=== PATIENT | female | born 1995 | race Caucasian/White ===

== ENCOUNTER 2021-03-26 21:58 | Emergency (ER) | payer SELFPAY ==
[~2021-03-26] VITALS: Ht 177.8 cm; Wt 147.5 kg
--- NOTE | 2021-03-26 22:44 | PHYS DOC ---
General Adult HPI: HPI: ".. I ve got SCABIES again... I did he Nix treatment.. but did not redo it in two weeks.. I ve got it back the aftab .. and his kids had it.. maybe it is in my mattress...:' Patient is a 25 year old female who presents with above hx and complaints scabies . Patient previous diagnosed with this however only completed 1 treatment. Patient had exposure to ex-boyfriend and his children who all had scabies. Patient recently moved to [facility] from [facility]. No history immunosuppression. No history of civic ill contacts other than her boyfriend and his children. No history immunosuppression. Has not gotten flu vaccination or Covid vaccination. Patient previously worked at [employer]. Has had previous infections of MRSA. Patient does have a past history of chlamydia infection. Has had 10 lifetime sex partners. Review of Systems: Review of Systems: Constitutional: Denies fever or chills Eyes: Denies change in visual acuity HENT: Denies nasal congestion or sore throat Respiratory: Denies cough or shortness of breath Cardiovascular: Denies chest pain or edema GI: Denies abdominal pain, nausea, vomiting, bloody stools or diarrhea : Denies dysuria Musculoskeletal: Denies back pain or joint pain Integument: Complains of rash Neurologic: Denies headache, focal weakness or sensory changes Endocrine: Denies polyuria or polydipsia Lymphatic: Denies swollen glands Psychiatric: Denies depression or anxiety Family History: Family History: Noncontributory to presentation Current Medications: Current Meds: See nursing for home meds Allergies: Allergies: No known drug allergies Physical Exam: PE: Constitutional: Moderate acute distress, non-toxic appearance. [] HENT: Normocephalic, atraumatic, bilateral external ears normal, oropharynx moist, no oral exudates, nose normal. [] Eyes: PERRLA, EOMI, conjunctiva normal, no discharge. [] Neck: Normal range of motion, no tenderness, supple, no stridor. [] Cardiovascular:Heart rate regular rhythm, no murmur [] Lungs & Thorax: Bilateral breath sounds clear to auscultation [] Abdomen: Bowel sounds normal, soft, no tenderness, no masses, no pulsatile masses. [Obese.] Skin: Warm, dry, no erythema, extensive areas of d excoriation and lesions appear to be scabies-like. Back: No tenderness, no CVA tenderness. [] Extremities: No tenderness, no cyanosis, no clubbing, ROM intact, no edema. [] Neurologic: Alert and oriented X 3, normal motor function, normal sensory function, no focal deficits noted. [] Psychologic: Affect anxious,, judgement normal, mood normal. [] EKG: EKG: [] Radiology/Procedures: Radiology/Procedures: [] Heart Score: C/O Chest Pain: N/A Risk Factors: Risk Factors: DM, Current or recent (<one month) smoker, HTN, HLP, family history of CAD, obesity. Risk Scores: Score 0 - 3: 2.5% MACE over next 6 weeks - Discharge Home Score 4 - 6: 20.3% MACE over next 6 weeks - Admit for Clinical Observation Score 7 - 10: 72.7% MACE over next 6 weeks - Early Invasive Strategies Course & Med Decision Making: Course & Med Decision Making Pertinent Labs and Imaging studies reviewed. (See chart for details) Take Benadryl as needed for itching. Use lindane shampoo over body and leave on overnight. Rinse in the morning. Then apply bag balm or A& D ointment to the skin twice daily until repeat treatment . Repeat lindane shampoo treatment and 7 days. Must wash all clothes, sheets, bedding, and may need to treat mattress to control the spread. Follow-up primary care. Follow-up urine results. Return if any concerns. Impression: 1. Scabies 2. Excoriations [] Dragon Disclaimer: Dragon Disclaimer: This electronic medical record was generated, in whole or in part, using a voice recognition dictation system. Departure Departure: Referrals: PCP,NO (PCP) Scripts Lindane (LINDANE) 60 Ml Shampoo 60 ML TP x3 for scabies, #3 MISC Prov: ADI POPE MD 03/26/21 Brandi Disclaimer This chart was dictated in whole or in part using Voice Recognition software in a busy, high-work load, and often noisy Emergency Department environment. It may contain unintended and wholly unrecognized errors or omissions. Dragon Disclaimer This chart was dictated in whole or in part using Voice Recognition software in a busy, high-work load, and often noisy Emergency Department environment. It may contain unintended and wholly unrecognized errors or omissions. ADI POPE MD Mar 26, 2021 22:44
[2021-03-26] MEDS ORDERED: IV RINGERS SOLUTION,LACTATED 1,000 ML IV SCH (22:45)
[2021-03-26] MEDS ORDERED: LIND60SH2 TP (23:34)
[2021-03-27 00:25] LABS: AMPHETAMINE/METHAMPHETAMINE NEG (NEG); BARBITURATES NEG (NEG); BENZODIAZEPINES NEG (NEG); CANNABINOIDS NEG (NEG); COCAINE NEG (NEG); METHADONE NEG (NEG); OPIATES NEG (NEG); PHENCYCLIDINE NEG (NEG)
[2021-03-27 00:40] LABS: BACTERIA,URINE FEW /HPF (0-FEW); BILIRUBIN,URINE NEG (NEG); CLARITY,URINE CLEAR; COLOR,URINE YELLOW; GLUCOSE,URINE NEG (NEG); NITRITE,URINE NEG (NEG); RBC,URINE OCC /HPF (0-2); SQUAMOUS EPITHELIAL CELL,UR FEW /LPF; UROBILINOGEN,URINE 0.2 mg/dL (0.2 mg/dL)
[2021-03-27 00:45] VITALS: BP 145/76
== END 2021-03-27 00:45 | disposition home or self-care (01) ==
LOC: ER 21:58
DX: B86 Scabies (principal); F42.4 Excoriation (skin-picking) disorder
CPT/HCPCS: 36415; 80307; 81001; 81025; 87491; 87591; 99283

== ENCOUNTER 2021-07-10 23:34 | Emergency (ER) | payer MEDICAID ==
[~2021-07-10] VITALS: Ht 177.8 cm; Wt 150.0 kg
[~2021-07-10 23:34] MED LIST: LIND60SH2 TP
[2021-07-11 00:20] VITALS: BP 144/93
--- NOTE | 2021-07-11 00:48 | PHYS DOC ---
Past History Past Surgical History: Cholecystectomy Additional Past Surgical Histo: left femur reconstruction Alcohol Use: Occasionally General Adult EDM: Chief Complaint: SHORTNESS OF BREATH HPI: HPI: ".. I ve been sick all week.. congestion,.. drainage.. I cant lay down becuase nasal drainage.. My nose so stuff up .. I cant. breath... I went ... Urgent care and they checked me for Covid but it was negative.. " Patient is a 26 year old female who presents with cough, fever , chills. congestion, malaise, and arthralgia.. Patient has tried [id number] meds with no relief. Has previously followed with urgent care they advised her that her Covid test was negative earlier this week. Does have a history of seasonal allergies. No history immunosuppression. Normally healthy. No specific ill contacts. Did not get COVID vaccination. Did not get flu vaccination.. Follows with Dr. Cunningham Review of Systems: Review of Systems: Constitutional: History of fever Eyes: Denies change in visual acuity HENT: History of nasal congestion Respiratory: History of a nonproductive cough Cardiovascular: Denies chest pain or edema GI: Denies abdominal pain, nausea, vomiting, bloody stools or diarrhea : Denies dysuria Musculoskeletal: Complains of myalgia and arthralgia Integument: Denies rash Neurologic: Denies headache, focal weakness or sensory changes Endocrine: Denies polyuria or polydipsia Lymphatic: Denies swollen glands Psychiatric: Denies depression or anxiety Family History: Family History: Noncontributory to presentation Current Medications: Current Meds: Current Medications Medications (Trade) Dose Ordered Sig/Cece Start Time Stop Time Status Last Admin Dose Admin Albuterol Sulfate (Ventolin Hfa Inhaler) 2 puff 1X ONCE 07/11/21 01:00 07/11/21 01:01 07/11/21 00:44 2 PUFF Allergies: Allergies: Allergies Coded Allergies Type Severity Reaction Last Updated Verified No Known Allergies Allergy Unknown 07/11/21 Yes Physical Exam: PE: Constitutional: Moderate acute distress, non-toxic appearance. [] HENT: Normocephalic, atraumatic, bilateral external ears normal, oropharynx moist, postnasal drainage, no oral exudates, nose Marked nasal congestion and clear rhinorrhea Eyes: PERRLA, EOMI, conjunctiva normal, no discharge. [] Neck: Normal range of motion, no tenderness, supple, no stridor. [] Cardiovascular:Heart rate regular rhythm, no murmur [] Lungs & Thorax: Bilateral breath sounds equal apex with scattered wheezes on auscultation [] occasional coughing spasms. Abdomen: Bowel sounds normal, soft, no tenderness, no masses, no pulsatile masses. Obese. Skin: Warm, dry, no erythema, no rash. [] Back: No tenderness, no CVA tenderness. [] Extremities: No tenderness, no cyanosis, no clubbing, ROM intact, no edema. No cording appreciated Neurologic: Alert and oriented X 3, normal motor function, normal sensory function, no focal deficits noted. [] Psychologic: Affect normal, judgement normal, mood normal. [] EKG: EKG: [] Radiology/Procedures: Radiology/Procedures: [] Heart Score: C/O Chest Pain: N/A Risk Factors: Risk Factors: DM, Current or recent (<one month) smoker, HTN, HLP, family history of CAD, obesity. Risk Scores: Score 0 - 3: 2.5% MACE over next 6 weeks - Discharge Home Score 4 - 6: 20.3% MACE over next 6 weeks - Admit for Clinical Observation Score 7 - 10: 72.7% MACE over next 6 weeks - Early Invasive Strategies Course & Med Decision Making: Course & Med Decision Making Pertinent Labs and Imaging studies reviewed. (See chart for details) Patient take Tylenol and ibuprofen as needed for fever or discomfort. Patient push clear fluids such as apple juice, grape juice, Pedialyte, Jell-O, popsicles,. Use [id number] Flonase 2 sprays every night each nostril. Multiple rinses with normal saline throughout the day. May use Afrin up to 4 times a day. Marked congestion may use Benadryl 50 mg at night and up to 4 times a day for marked congestion cough and allergy symptoms.. Follow-up primary f.. Return if any concerns. Impression: 1. Viral syndrome [] Brandi Disclaimer: Brandi Disclaimer: This electronic medical record was generated, in whole or in part, using a voice recognition dictation system. Departure Departure: Referrals: LINDY HUTTON (PCP) Brandi Disclaimer This chart was dictated in whole or in part using Voice Recognition software in a busy, high-work load, and often noisy Emergency Department environment. It may contain unintended and wholly unrecognized errors or omissions. ADI POPE MD Jul 11, 2021 00:48
[2021-07-11] MEDS ORDERED: ALBUTEROL SULFATE 8GM INHALER. INH ONE (01:00)
[2021-07-11 01:28] LABS: INFLUENZA A PATIENT NEGATIVE (NEGATIVE); INFLUENZA B PATIENT NEGATIVE (NEGATIVE)
[2021-07-11] MEDS ORDERED: predniSONE 20 MG TABLET PO ONE (02:00)
== END 2021-07-11 02:18 | disposition home or self-care (01) ==
LOC: ER 23:34
DX: B34.9 Viral infection, unspecified (principal); Z20.822 Contact with and (suspected) exposure to COVID-19
CPT/HCPCS: 87428; 94640; 99283; J7512; 94664